=== PATIENT | female | born 1945 | race African-American/Black ===

== ENCOUNTER 2019-02-05 10:43 | Inpatient (IN) | payer OTHER ==
[2019-02-05 11:11] VITALS: BMI 52.7
--- NOTE | 2019-02-05 11:20 | PDOC ---
Attending Attestation - Resident Resident Name: ValarieSaCarlota - ED Attending Attestation I have performed the following: I have examined & evaluated the patient, The case was reviewed & discussed with the resident, I agree w/resident's findings & plan, Exceptions are as noted - HPI HPI: 02/05/19 13:19 Ms Sandra is a 73 yo F resident of [facility] presenting to the ER via EMS due to shortness of breath Pt has a h/o ESRD on HD M/W/F, atrial fibrillation on Coumadin, NIDDM, CAD, CHF , HLD, COPD, anemia, RA, and hyperparathyroidism Pt had difficulty clearly telling me what happened today Per half-way records, pt was noted to be lethargic, low grade fever (temp 99 ), and audible wheezing - Physicial Exam PE: 02/05/19 13:23 GENERAL: The patient is awake, alert, and fully oriented, morbidly obese ENT: Pupils equal, round and reactive to light, extraocular movements intact, sclera anicteric, conjunctiva clear. Neck supple. LUNGS: limited examination, distant breath sounds CV: RRR, S1/S2, no MRG. Cap refill < 2 sec. ABDOMEN: Soft, obese, non-tender EXTREMITIES: 2+ pitting LE edema bilaterally, symmetric. NEUROLOGICAL: Normal speech, normal gait. CN II-XII grossly intact. SKIN: Warm, dry, no rash - Medical Decision Making 02/05/19 13:31 DD includes but is not limited to : CHF, ACS, Pneumonia Will do: Labs CXR EKG Re Assess Arrange for HD today Laboratory Tests 02/05/19 02/05/19 12:30 12:30 WBC 12.5 H Hgb 10.6 L Hct 33.5 Plt Count 372 D VBG pH 7.34 POC VBG pCO2 50.1 POC VBG pO2 77.1 H VBG HCO3 26.0 VBG O2 Sat (Zoey) 93.8 H VBG Base Excess 0.2 02/05/19 13:32 Pt seen in the ER by Dr. Mullins Pt will be dialyzed today 02/05/19 15:49 Labs have hemolyzezd x 2 Awaiting results 02/05/19 16:14 Laboratory Tests 02/05/19 02/05/19 13:49 14:54 Sodium 135 L Potassium 4.2 Chloride 98 Carbon Dioxide 28 BUN 66.0 H Creatinine 5.6 H Random Glucose 91 Lactic Acid 0.7 Troponin I 0.[address] Elise He would like us to call the hospitalist
[2019-02-05 12:53] LABS: VENOUS PC02 50.1 mmHg (41-51); VENOUS PH 7.34 (7.31-7.41); VENOUS PO2 77.1 mmHg (30-40)
[2019-02-05 13:09] LABS: BASO % 0.2 % (0-2.0); EOS % 1.9 % (0-4.5); HEMATOCRIT 33.5 % (32.4-45.2); HEMOGLOBIN 10.6 GM/dL (10.7-15.3); LYMPH % 8.6 % (8-40); MCH 28.7 pg (25.7-33.7); MCHC 31.7 g/dl (32.0-36.0); MEAN CELL VOLUME 90.4 fl (80-96); MEAN PLT VOLUME 9.1 fl (7.5-11.1); MONO % 4.8 % (3.8-10.2); NEUT % 84.5 % (42.8-82.8); PLATELET COUNT 372 K/MM3 (134-434); RBC 3.71 M/mm3 (3.60-5.2); RDW 16.2 % (11.6-15.6); WHITE BLOOD COUNT 12.5 K/mm3 (4.0-10.0)
--- NOTE | 2019-02-05 13:10 | PDOC ---
History of Present Illness - General Chief Complaint: Shortness of Breath Stated Complaint: SOB Time Seen by Provider: 02/05/19 11:19 History Source: Patient, Retirement Records Exam Limitations: Other (poor historian) - History of Present Illness Initial Comments: 02/05/19 12:52 *pt is a poor historian* Pt is a 73yo F with PMH of ESRD on HD MWF, COPD, PE, CHF, AFib (metoprolol and Coumadin), HLD, HTN BIBA from [facility] for low grade fever, SOB and wheezing. Pt states she was feeling SOB this morning but she received treatments and felt better. She is denying symptoms at this time. Patient is a poor historian, is AOx2 but not giving a clear story. Denies chest pain, sob, abdominal pain, n/v/d , headache, fevers, chills, cough, fevers. PMD: Arik PMH: see hpi PSH: see hpi Meds: see med rec Allergies: PCN, tramadol Past History - Past Medical History Allergies/Adverse Reactions: Allergies Allergy/AdvReac Type Severity Reaction Status Date / Time Penicillins Allergy Verified 05/05/15 14:33 tramadol Allergy Verified 05/05/15 18:45 Home Medications: Ambulatory Orders Acetaminophen [Tylenol] 650 mg PO ASDIR 02/05/19 Allopurinol [Zyloprim -] 100 mg PO DAILY 02/05/19 Budesonide/Formeterol Fumarate [SYMBICORT 160/4.5mcg -] 1 inh PO BID 02/05/19 Docusate Sodium [Colace] 100 mg PO DAILY 02/05/19 Dorzolamide HCl/Timolol Maleat [Cosopt Eye Drops] 10 ml OP BID 02/05/19 Guaifenesin AC [Robitussin AC -] 5 ml PO TID 02/05/19 Hydroxychloroquine Sulfate 200 mg PO DAILY 02/05/19 Levothyroxine [Synthroid -] 125 mcg PO DAILY 02/05/19 Metoprolol Tartrate 25 mg PO BID 02/05/19 Ondansetron [Zuplenz] 4 mg PO TID 02/05/19 Pantoprazole Sodium [Protonix -] 20 mg PO DAILY 02/05/19 Polyethylene Glycol 3350 [Miralax (For Daily Use) -] 17 gm PO DAILY 02/05/19 Sennosides [Senna] 8.6 mg PO DAILY 02/05/19 Simethicone 80 mg PO TID 02/05/19 Simvastatin [Zocor -] 20 mg PO HS 02/05/19 Warfarin Sodium [Coumadin] 6 mg PO ASDIR 02/05/19 Anemia: Yes Asthma: Yes Cardiac Disorders: Yes (afib) COPD: Yes CHF: Yes Dialysis: Yes (esrf) GI Disorders: Yes (constipation) HTN: Yes Hypercholesterolemia: Yes Other medical history: RA, gout - Surgical History Appendectomy: Yes - Suicide/Smoking/Psychosocial Hx Smoking History: Smoker current status UNK Have you smoked in the past 12 months: No Information on smoking cessation initiated: No Hx Alcohol Use: No Drug/Substance Use Hx: No Review of Systems - Review of Systems Constitutional: No: Chills, Diaphoresis, Fever, Weakness HEENTM: No: Symptoms Reported Respiratory: No: Cough, Orthopnea, Shortness of Breath Cardiac (ROS): No: Chest Pain, Lightheadedness, Palpitations, Syncope ABD/GI: No: Constipated, Diarrhea, Nausea, Vomiting, Abdominal cramping : No: Symptoms Reported Musculoskeletal: No: Symptoms Reported Integumentary: No: Symptoms Reported Neurological: No: Symptoms reported *Physical Exam - Vital Signs Last Vital Signs Temp Pulse Resp BP Pulse Ox 98.5 F 73 18 166/93 100 02/05/19 11:07 02/05/19 11:07 02/05/19 11:07 02/05/19 11:07 02/05/19 11:07 - Physical Exam General Appearance: Yes: Appropriately Dressed, Obese. No: Apparent Distress HEENT: positive: EOMI, MARNIE, Normal ENT Inspection Neck: positive: Trachea midline, Supple Respiratory/Chest: positive: Decreased Breath Sounds. negative: Crackles, Rales , Wheezing Cardiovascular: positive: Regular Rhythm, Regular Rate, S1, S2. negative: Edema , JVD, Murmur Vascular Pulses: Dorsalis-Pedis (R): 1+, Doralis-Pedis (L): 1+ Gastrointestinal/Abdominal: positive: Normal Bowel Sounds, Soft. negative: Guarding, Rebound Musculoskeletal: negative: CVA Tenderness Extremity: positive: Normal Capillary Refill, Pedal Edema. negative: Calf Tenderness (up to mid calf) Integumentary: positive: Normal Color, Dry, Warm Neurologic: positive: official court reporter II-XII NML intact, Alert, Normal Mood/Affect, Normal Response, Motor Strength 5/5. negative: Fully Oriented (AOx2) ED Treatment Course - LABORATORY CBC & Chemistry Diagram: 02/05/19 12:30 02/05/19 14:54 - RADIOLOGY Radiology Studies Ordered: Category Date Time Status CHEST X-RAY PORTABLE* [RAD] Stat Radiology 02/05/19 12:16 Ordered Medical Decision Making - Medical Decision Making 02/05/19 19:17 Pt is a 73yo F with PMH of ESRD on HD MWF, COPD, PE, CHF, AFib (metoprolol and Coumadin), HLD, HTN BIBA from [facility] for low grade fever, SOB and wheezing. Pt states she was feeling SOB this morning but she received treatments and felt better. She is denying symptoms at this time. Patient is a poor historian, is AOx2 but not giving a clear story. Denies chest pain, sob, abdominal pain, n/v/d , headache, fevers, chills, cough, fevers. Vitals: wnl, 100% on NC, saturationg 96-97%RA PE: pedal edema, decreased breath sounds, no wheezing, normal heart sounds Ddx includes but not limited to fluid overload, copd exacerbation, pna, ptx, chf , pe, acs, infectious process pt due for dialysis today, could be fluid overload, however given low grade temp and sob, will run sepsis labs, will refrain from giving fluids at this time. labs significant for Cr 5 (above baseline of around 3-4) CXR shows vascular congestion. Pt endorsed to Dr. Mullins who will take pt to dialysis. chemistires hemolyzed x2. pt endorsed to Dr. Elise then endorsed to hospitalist team to admit for fluid overload, kylah *DC/Admit/Observation/Transfer Diagnosis at time of Disposition: End stage renal disease Renal failure (ARF), acute on chronic Qualifiers: Acute renal failure type: unspecified Chronic kidney disease stage: on chronic dialysis Qualified Code(s): N17.9 - Acute kidney failure, unspecified; N18.9 - Chronic kidney disease, unspecified; Z99.2 - Dependence on renal dialysis - Discharge Dispostion Condition at time of disposition: Good - Referrals - Patient Instructions - Post Discharge Activity
[2019-02-05 14:38] LABS: INR 1.9 (0.83-1.09); PROTHROMBIN TIME (PATIENT) 22.6 SEC (9.7-13.0)
--- NOTE | 2019-02-05 14:56 | CONSULT ---
Consult Consult Specialty:: Nephrology Reason for Consultation:: ESRD - History of Present Illness Chief Complaint: shortness of breath History of Present Illness: Pt is a 73 year old female with pmhx of esrd, a-fib, dm, cad, chf, hld and copd who presents from the [place] with increased shortness of breath. She has ESRD and is on a MWF schedule. She says that she feels that she needs HD. SHe denies chest pain or palpitations. SHe denies fevers or chills. She denies cough. She was also found to be lethargic in rehab however her mental status has improved. - History Source History Provided By: Patient, Medical Record - Past Medical History Cardio/Vascular: Yes: CAD, CHF, Hyperlipdemia Pulmonary: Yes: COPD, Pneumonia Renal/: Yes: Renal Inusuff (Has CKD, followed by Dr. 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 [employer] History of Recent Travel: No Home Medications - Allergies Allergies/Adverse Reactions: Allergies Allergy/AdvReac Type Severity Reaction Status Date / Time Penicillins Allergy Verified 05/05/15 14:33 tramadol Allergy Verified 05/05/15 18:45 - Home Medications Home Medications: Ambulatory Orders Acetaminophen [Tylenol] 650 mg PO ASDIR 02/05/19 Allopurinol [Zyloprim -] 100 mg PO DAILY 02/05/19 Budesonide/Formeterol Fumarate [SYMBICORT 160/4.5mcg -] 1 inh PO BID 02/05/19 Docusate Sodium [Colace] 100 mg PO DAILY 02/05/19 Dorzolamide HCl/Timolol Maleat [Cosopt Eye Drops] 10 ml OP BID 02/05/19 Guaifenesin AC [Robitussin AC -] 5 ml PO TID 02/05/19 Hydroxychloroquine Sulfate 200 mg PO DAILY 02/05/19 Levothyroxine [Synthroid -] 125 mcg PO DAILY 02/05/19 Metoprolol Tartrate 25 mg PO BID 02/05/19 Ondansetron [Zuplenz] 4 mg PO TID 02/05/19 Pantoprazole Sodium [Protonix -] 20 mg PO DAILY 02/05/19 Polyethylene Glycol 3350 [Miralax (For Daily Use) -] 17 gm PO DAILY 02/05/19 Sennosides [Senna] 8.6 mg PO DAILY 02/05/19 Simethicone 80 mg PO TID 02/05/19 Simvastatin [Zocor -] 20 mg PO HS 02/05/19 Warfarin Sodium [Coumadin] 6 mg PO ASDIR 02/05/19 Family Disease History - Family Disease History Family Disease History: Heart Disease: Father (55 HTN , ), Other: Mother (80, FIBROMYALGIA, DM), Brother (A&W), Sister (") Review of Systems - Review of Systems Constitutional: reports: Malaise Eyes: reports: No Symptoms HENT: reports: No Symptoms Neck: reports: No Symptoms Cardiovascular: reports: Edema, Shortness of Breath Respiratory: reports: SOB, SOB on Exertion. denies: Cough Genitourinary: reports: No Symptoms Musculoskeletal: reports: No Symptoms Integumentary: reports: No Symptoms Neurological: reports: No Symptoms Endocrine: reports: No Symptoms Hematology/Lymphatic: reports: No Symptoms Psychiatric: reports: No Symptoms Physical Exam Vital Signs: Vital Signs Temperature 98.5 F 02/05/19 11:07 Pulse Rate 73 02/05/19 11:07 Respiratory Rate 18 02/05/19 11:07 Blood Pressure 166/93 02/05/19 11:07 O2 Sat by Pulse Oximetry (%) 100 02/05/19 11:07 Constitutional: Yes: Calm Eyes: Yes: Conjunctiva Clear HENT: Yes: Atraumatic Cardiovascular: Yes: S1, S2 Respiratory: Yes: On Nasal O2 Gastrointestinal: Yes: Soft, Abdomen, Obese Musculoskeletal: Yes: WNL Extremities: Yes: Other (fistula with thrill and bruit) Edema: Yes Neurological: Yes: Oriented Psychiatric: Yes: Oriented Labs: CBC, BMP 02/05/19 12:30 Laboratory Tests 02/05/19 02/05/19 12:30 13:49 WBC 12.5 H Hgb 10.6 L Sodium Pending Potassium Pending Chloride Pending Carbon Dioxide Pending Anion Gap Pending BUN Pending Creatinine Pending Est GFR (CKD-EPI)AfAm Pending Est GFR (CKD-EPI)NonAf Pending Random Glucose Pending Imaging - Results Chest X-ray: Report Reviewed Problem List - Problems (1) CHF (congestive heart failure) Code(s): I50.9 - HEART FAILURE, UNSPECIFIED (2) End stage renal disease Code(s): N18.6 - END STAGE RENAL DISEASE (3) Hypertension Code(s): I10 - ESSENTIAL (PRIMARY) HYPERTENSION Assessment/Plan Impression 1. ESRD 2. Gout 3. a-fib 4. DM 5. CHF 6. hyperlipidemia 7. anemia Plan - will arrange for HD today - follow up bmp - cxr reviewed - renal diet - called HD center - HD 3:45 2 k bath, 1999 heparin, aranesp 40, venofer 50, right arm avf - follow cultures
[2019-02-05] MEDS ORDERED: HEPARIN NA (PORCINE) 5,000 UNITS/ML 1ML VIAL IVPUSH ONE (14:58)
[2019-02-05 16:05] LABS: ALBUMIN 3.1 g/dl (3.4-5.0); BILIRUBIN,TOTAL 0.3 mg/dL (0.2-1); CALCIUM 7.9 mg/dL (8.5-10.1); CREATININE 5.6 mg/dL (0.55-1.3); MAGNESIUM 2.3 mg/dL (1.8-2.4); POTASSIUM 4.2 mmol/L (3.5-5.1); TOT PROT 7.2 g/dl (6.4-8.2)
--- NOTE | 2019-02-05 16:44 | EKG ---
Test Reason : Blood Pressure : / mmHG Vent. Rate : 072 BPM Atrial Rate : 072 BPM P-R Int : 160 ms QRS Dur : 088 ms QT Int : 434 ms P-R-T Axes : 018 -27 000 degrees QTc Int : 475 ms NORMAL SINUS RHYTHM SEPTAL INFARCT , AGE UNDETERMINED ABNORMAL ECG WHEN COMPARED WITH ECG OF 05-MAY-2015 14:36, T WAVE VARIATION Confirmed by RONAN CHACON MD ([id number]) on 02/05/2019 4:43:46 PM Referred By: Confirmed By:RONAN CHACON MD
[2019-02-05] MEDS ORDERED: SODIUM CHLORIDE 250 ML IV PRN (17:41)
[2019-02-05] MEDS ORDERED: EPOETIN ALFA 2,000 UNIT/1 ML VIAL IVPUSH ONE (17:45)
--- NOTE | 2019-02-05 18:03 | HP ---
Admitting History and Physical - Admission Chief Complaint: "I missed my dialysis today" History of Present Illness: 73 y/o female resident of [facility] presenting to the ER via EMS due to shortness of breath Pt has a h/o ESRD on HD M/W/F, atrial fibrillation on Coumadin, NIDDM, CAD, CHF , HLD, COPD, anemia, RA, and hyperparathyroidism Pt yari poor historian and had difficulty clearly telling me what happened today leading up to her admission.Per residential records, pt was noted to be lethargic, low grade fever (temp 99), and audible wheezing History Source: Patient, Medical Record, Transfer Record Limitations to Obtaining History: Poor Historian - Past Medical History Cardiovascular: Yes: AFIB (on coumadin), CAD, CHF, Hyperlipdemia Pulmonary: Yes: COPD, Pneumonia Renal/: Yes: Renal Inusuff (Has CKD, followed by Dr. Lloyd, baseline creatinine approx 2.5 -> 3 mg/dL; had renal biopsy 06/2013 which revealed diabetic nephropathy), Hemodialysis (M/W/F- last HD on 02/02) Heme/Onc: Yes: Anemia Rheumatology: Yes: Rheumatoid Arthritis Endocrine: Yes: Diabetes Mellitus, Hyperparathyroidism Dermatology: Yes: Other (SKIN RASH IN SKIN FOLDS) - Past Surgical History Past Surgical History: Yes: AV Fistula/Graft - Smoking History Smoking history: Smoker current status UNK Have you smoked in the past 12 months: No - Alcohol/Substance Use Hx Alcohol Use: No - Social History ADL: Support Services (resident [facility]) 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 [employer] History of Recent Travel: No Home Medications - Allergies Allergies/Adverse Reactions: Allergies Allergy/AdvReac Type Severity Reaction Status Date / Time Penicillins Allergy Verified 05/05/15 14:33 tramadol Allergy Verified 05/05/15 18:45 - Home Medications Home Medications: Ambulatory Orders Acetaminophen [Tylenol] 650 mg PO ASDIR 02/05/19 Allopurinol [Zyloprim -] 100 mg PO DAILY 02/05/19 Budesonide/Formeterol Fumarate [SYMBICORT 160/4.5mcg -] 1 inh PO BID 02/05/19 Docusate Sodium [Colace] 100 mg PO DAILY 02/05/19 Dorzolamide HCl/Timolol Maleat [Cosopt Eye Drops] 10 ml OP BID 02/05/19 Guaifenesin AC [Robitussin AC -] 5 ml PO TID 02/05/19 Levothyroxine [Synthroid -] 125 mcg PO DAILY 02/05/19 Ondansetron [Zuplenz] 4 mg PO TID 02/05/19 Pantoprazole Sodium [Protonix -] 20 mg PO DAILY 02/05/19 Polyethylene Glycol 3350 [Miralax (For Daily Use) -] 17 gm PO DAILY 02/05/19 RX: Hydroxychloroquine Sulfate 200 mg PO DAILY 02/05/19 RX: Metoprolol Tartrate 25 mg PO BID 02/05/19 RX: Simethicone 80 mg PO TID 02/05/19 Sennosides [Senna] 8.6 mg PO DAILY 02/05/19 Simvastatin [Zocor -] 20 mg PO HS 02/05/19 Warfarin Sodium [Coumadin] 6 mg PO ASDIR 02/05/19 Family Disease History - Family Disease History Family Disease History: Heart Disease: Father (55 HTN , ), Other: Mother (80, FIBROMYALGIA, DM), Brother (A&W), Sister (") Review of Systems - Review of Systems Constitutional: reports: Fever, Weakness Eyes: reports: No Symptoms HENT: reports: No Symptoms Neck: reports: No Symptoms Cardiovascular: reports: Shortness of Breath Respiratory: reports: SOB on Exertion (has not be able to ambulate freely-needs to use w/c), Wheezing Gastrointestinal: reports: No Symptoms Genitourinary: reports: No Symptoms Breasts: reports: No Symptoms Reported Musculoskeletal: reports: No Symptoms Integumentary: reports: No Symptoms Neurological: reports: Confusion (as report byresidence) Endocrine: reports: No Symptoms Hematology/Lymphatic: reports: No Symptoms Psychiatric: reports: No Symptoms Physical Examination Vital Signs: Vital Signs Temperature 98.5 F 02/05/19 11:07 Pulse Rate 73 02/05/19 11:07 Respiratory Rate 18 02/05/19 11:07 Blood Pressure 166/93 02/05/19 11:07 O2 Sat by Pulse Oximetry (%) 100 02/05/19 11:07 Constitutional: Yes: No Distress, Calm, Obese Eyes: Yes: WNL, Conjunctiva Clear, EOM Intact HENT: Yes: WNL, Atraumatic, Normocephalic Neck: Yes: WNL, Supple, Trachea Midline Cardiovascular: Yes: Regular Rate and Rhythm Respiratory: Yes: Regular, Diminished (at bases), Poor Air Entry, Wheezes ( reported but not on exam now) Gastrointestinal: Yes: Normal Bowel Sounds, Soft ...Rectal Exam: Yes: Deferred Renal/: Yes: Other (pt states she make some urine at home) Musculoskeletal: Yes: Muscle Weakness Edema: Yes Edema: LLE: 3+, RLE: 3+ Peripheral Pulses WNL: No Peripheral Pulses: Left Radial: 4+, Right Radial: 4+, Left Doralis Pedis: 3+, Right Dorsalis Pedis: 3+, Left Femoral: 4+, Right Femoral: 4+ Integumentary: Yes: Rash (fungal rash under panus) Neurological: Yes: Alert, Confusion, Unsteady Gait (as reported by patient bur not observed) ...Motor Strength: LUE, LLE, RUE, RLE (generalized weakness) Psychiatric: Yes: Alert, Oriented (to person and place(knew she was at [facility])) Labs: CBC, BMP 02/05/19 12:30 02/05/19 14:54 Imaging - Results Chest X-ray: Image Reviewed (poor inspiratory effort, inceased PNC since last CXR) Problem List - Problems (1) Atrial fibrillation Assessment/Plan: rate controlled on metolrolol continue home dose of 25mg BID antiocoagulated with coumdain continue home dose (6mg) tonight and reassess after INR in am daily INR Code(s): I48.91 - UNSPECIFIED ATRIAL FIBRILLATION (2) Prophylactic measure Assessment/Plan: FEN no need for further IVF resume diabetic/renal diet after HD monitor electrolytes DVT Proph heparin SQ while in patient resume coumadin for AF proph Dispo maintain as in patient full code discharge planning Code(s): Z29.9 - ENCOUNTER FOR PROPHYLACTIC MEASURES, UNSPECIFIED (3) CHF (congestive heart failure) Assessment/Plan: Increased PVC on CXR no need for additional IVF will reassess pulmonary status after HD is complete Lasix PRN after HD BNP pending and will trend if elevate repeat CXR in morning Code(s): I50.9 - HEART FAILURE, UNSPECIFIED (4) Diabetes Assessment/Plan: BG 91 in ED BGN ac abd q HS novolog sliding scale Code(s): E11.9 - TYPE 2 DIABETES MELLITUS WITHOUT COMPLICATIONS (5) End stage renal disease Assessment/Plan: Followed Dr. Lloyd, baseline creatinine approx 2.5 -> 3 mg/dL; had renal biopsy 06/2013 which revealed diabetic nephropathy) seen by Dr Hector in Ed and pt will have HD today will assess for additional need to HD tomorrow and after labs are reviewed Code(s): N18.6 - END STAGE RENAL DISEASE (6) Hyperparathyroidism Code(s): E21.3 - HYPERPARATHYROIDISM, UNSPECIFIED (7) Obesity Assessment/Plan: nutritional counseling Code(s): E66.9 - OBESITY, UNSPECIFIED (8) Rheumatoid arthritis Assessment/Plan: continue home dose of hrdroxychloroquine sulfate Code(s): M06.9 - RHEUMATOID ARTHRITIS, UNSPECIFIED (9) Hypothyroid Assessment/Plan: continue home dose of synthroid TSH level in am Code(s): E03.9 - HYPOTHYROIDISM, UNSPECIFIED Visit type - Emergency Visit Emergency Visit: Yes ED Registration Date: 02/05/19 Care time: The patient presented to the Emergency Department on the above date and was hospitalized for further evaluation of their emergent condition. - New Patient This patient is new to me today: Yes Date on this admission: 02/05/19 - Critical Care Critical Care patient: No
[2019-02-05] MEDS ORDERED: guaiFENesin/CODEINE 5 ML UNIT-DOSE CUPS PO PRN (18:41)
[2019-02-05] MEDS ORDERED: ACETAMINOPHEN 325 MG TABLET (FP) PO PRN (18:45)
[2019-02-05] MEDS ORDERED: ALBUTEROL SO4 2.5/IPRATROPIUM 0.5 INH SOL 3 ML VIAL.NEB. NEB PRN (18:45)
[2019-02-05] MEDS ORDERED: WARFARIN NA 3 MG TABLET PO SCH (20:00)
[2019-02-05] MEDS ORDERED: PATIENT'S OWN MEDICATION (NON-FORMULARY) (Dorzolamide Hcl/Timolol Maleat [Cosopt Eye Drops OP SCH (22:00)
[2019-02-05] MEDS: METOPROLOL TARTRATE 25 MG TABLET (FP) PO SCH (23:15)
[2019-02-05] MEDS: ATORVASTATIN CA 10 MG TABLET (FP) PO SCH (23:15)
[2019-02-05] MEDS: BUDESONIDE/FORMETEROL FUMARATE 160/4.5 mcg INHALER IH SCH (23:15)
[2019-02-06] MEDS ORDERED: WARFARIN NA 1 MG TABLET (FP) ONE (01:12)
[2019-02-06] MEDS ORDERED: METOPROLOL TARTRATE 25 MG TABLET (FP) ONE (01:13)
[2019-02-06] MEDS ORDERED: WARFARIN NA 5 MG TABLET (UD) ONE (01:13)
[2019-02-06] MEDS ORDERED: ATORVASTATIN CA 10 MG TABLET (FP) ONE (01:13)
[2019-02-06] MEDS: SIMETHICONE 80 MG TAB.CHEW (FP) PO SCH ×3 (05:53→21:55)
[2019-02-06 07:30] LABS: BASO % 0.7 % (0-2.0); HEMATOCRIT 33.8 % (32.4-45.2); HEMOGLOBIN 10.7 GM/dL (10.7-15.3); LYMPH % 15.4 % (8-40); MCH 28.8 pg (25.7-33.7); MCHC 31.6 g/dl (32.0-36.0); MEAN PLT VOLUME 8.1 fl (7.5-11.1); MONO % 7.8 % (3.8-10.2); NEUT % 75.1 % (42.8-82.8); PLATELET COUNT 221 K/MM3 (134-434); RBC 3.72 M/mm3 (3.60-5.2); RDW 16.4 % (11.6-15.6); WHITE BLOOD COUNT 12.1 K/mm3 (4.0-10.0)
[2019-02-06 07:46] LABS: INR 2.23 (0.83-1.09); PROTHROMBIN TIME (PATIENT) 26.5 SEC (9.7-13.0)
[2019-02-06 07:59] LABS: ALBUMIN 3.3 g/dl (3.4-5.0); BILIRUBIN,TOTAL 0.3 mg/dL (0.2-1); BLOOD UREA NITROGEN 35.2 mg/dL (7-18); CALCIUM 8.3 mg/dL (8.5-10.1); CREATININE 4.1 mg/dL (0.55-1.3); MAGNESIUM 2.2 mg/dL (1.8-2.4); N-TERMINAL BNP 25103.2 pg/ml (5-125); POTASSIUM 3.9 mmol/L (3.5-5.1); TOT PROT 7.6 g/dl (6.4-8.2)
[2019-02-06] MEDS ORDERED: PT OWN MED DRAWER 7, Y5N ONE (10:33)
[2019-02-06] MEDS: METOPROLOL TARTRATE 25 MG TABLET (FP) PO SCH ×2 (10:49→21:57)
[2019-02-06] MEDS: SENNOSIDES 8.6MG TABLET (FP) PO SCH (10:49)
[2019-02-06] MEDS: BUDESONIDE/FORMETEROL FUMARATE 160/4.5 mcg INHALER IH SCH ×2 (10:49→21:56)
[2019-02-06] MEDS: ALLOPURINOL 100 MG TABLET (FP) PO SCH (10:49)
[2019-02-06] MEDS: LEVOTHYROXINE NA 125 MCG TABLET (FP) PO SCH (10:49)
[2019-02-06] MEDS: PANTOPRAZOLE 20 MG TABLET (FP) PO SCH (10:49)
[2019-02-06] MEDS: DOCUSATE SODIUM 100 MG CAPSULE (FP) PO SCH (10:49)
[2019-02-06] MEDS: POLYETHYLENE GLYCOL 3350 119 GM BTL PO SCH (10:50)
[2019-02-06] MEDS: HYDROXYCHLOROQUINE SO4 200 MG TABLET (FP) PO SCH (12:16)
--- NOTE | 2019-02-06 13:03 | PN ---
Progress Note (short form) - Note Progress Note: has burning when she urinates coughing, but better per pt no SOB was dialysed yesterday Vital Signs - 24 hr 02/05/19 02/05/19 02/05/19 17:00 17:20 17:50 Temperature Pulse Rate 69 66 85 Pulse Rate [ Left] Respiratory 18 18 18 Rate Blood Pressure 210/82 H 184/105 H 174/86 H Blood Pressure [Left] O2 Sat by Pulse Oximetry (%) 02/05/19 02/05/19 02/05/19 18:20 18:50 19:20 Temperature Pulse Rate 87 99 H 65 Pulse Rate [ Left] Respiratory 18 18 18 Rate Blood Pressure 130/71 103/65 134/109 H Blood Pressure [Left] O2 Sat by Pulse Oximetry (%) 02/05/19 02/05/19 02/05/19 19:50 20:20 20:50 Temperature Pulse Rate 65 108 H 109 H Pulse Rate [ Left] Respiratory 18 18 18 Rate Blood Pressure 145/84 132/87 128/81 Blood Pressure [Left] O2 Sat by Pulse Oximetry (%) 02/05/19 02/05/19 02/05/19 21:05 21:20 22:45 Temperature Pulse Rate 69 66 Pulse Rate [ Left] Respiratory 18 18 Rate Blood Pressure 133/80 156/84 Blood Pressure [Left] O2 Sat by Pulse 98 Oximetry (%) 02/06/19 02/06/19 02/06/19 00:31 01:41 04:44 Temperature 98.0 F 98.5 F Pulse Rate 62 Pulse Rate [ 69 66 Left] Respiratory 23 H 24 H 20 Rate Blood Pressure Blood Pressure 158/90 [Left] O2 Sat by Pulse 100 100 97 Oximetry (%) 02/06/19 02/06/19 02/06/19 05:53 05:56 09:00 Temperature 98.6 F 98.5 F Pulse Rate 62 61 Pulse Rate [ Left] Respiratory 20 20 94 H Rate Blood Pressure 136/84 152/71 Blood Pressure [Left] O2 Sat by Pulse 96 94 L Oximetry (%) Current Medications Generic Name Dose Route Start Last Admin Trade Name Freq PRN Reason Stop Dose Admin Acetaminophen 650 mg 02/05/19 18:45 Tylenol - PO Q6H PRN Fever Or Pain Albuterol/Ipratropium 1 amp 02/05/19 18:45 Duoneb - NEB Q4H PRN SHORTNESS OF BREATH Allopurinol 100 mg 02/06/19 10:00 02/06/19 10:49 Zyloprim - PO 100 mg DAILY [facility] Administration Atorvastatin Calcium 10 mg 02/05/19 22:00 02/05/19 23:15 Lipitor - PO 10 mg HS [facility] Administration Budesonide/Formoterol Fumarate 1 puff 02/05/19 22:00 02/06/19 10:49 Symbicort 160/4.5mcg - IH 1 puff BID [facility] Administration Docusate Sodium 100 mg 02/06/19 10:00 02/06/19 10:49 Colace - PO 100 mg DAILY [facility] Administration Guaifenesin/Codeine Phosphate 5 ml 02/05/19 18:41 Robitussin Ac - PO TID PRN COUGH Hydroxychloroquine Sulfate 200 mg 02/06/19 10:00 02/06/19 12:16 Plaquenil - PO 200 mg DAILY [facility] Administration Sodium Chloride 250 mls @ 3,000 mls/hr 02/05/19 17:41 Normal Saline - IV 02/06/19 17:40 PRN PRN Hypotension during Dialysis Levothyroxine Sodium 125 mcg 02/06/19 10:00 02/06/19 10:49 Synthroid - PO 125 mcg DAILY [facility] Administration Metoprolol Tartrate 25 mg 02/05/19 22:00 02/06/19 10:49 Lopressor - PO 25 mg BID [facility] Administration Non-Formulary Medication 10 ml 02/05/19 22:00 Dorzolamide Hcl/Timolol Maleat [Cosopt Eye Drops] OP BID [facility] Pantoprazole Sodium 20 mg 02/06/19 10:00 02/06/19 10:49 Protonix - PO 20 mg DAILY [facility] Administration Polyethylene Glycol 17 gm 02/06/19 10:00 02/06/19 10:50 Miralax (For Daily Use) - PO 17 gm DAILY [facility] Administration Senna 1 tab 02/06/19 10:00 02/06/19 10:49 Senna - PO 1 tab DAILY [facility] Administration Simethicone 80 mg 02/05/19 22:00 02/06/19 05:53 Mylicon - PO 80 mg TID [facility] Administration Laboratory Results - last 24 hr 02/05/19 02/05/19 02/05/19 12:30 12:30 12:30 WBC 12.5 H RBC 3.71 Hgb 10.6 L Hct 33.5 MCV 90.4 MCH 28.7 MCHC 31.7 L RDW 16.2 H Plt Count 372 D MPV 9.1 D Absolute Neuts (auto) 10.6 H Neutrophils % 84.5 H Lymphocytes % 8.6 D Monocytes % 4.8 Eosinophils % 1.9 Basophils % 0.2 Nucleated RBC % 0 PT with INR Cancelled INR Cancelled PTT (Actin FS) Cancelled VBG pH 7.34 POC VBG pCO2 50.1 POC VBG pO2 77.1 H VBG HCO3 26.0 VBG O2 Sat (Zoey) 93.8 H VBG Base Excess 0.2 Sodium Potassium Chloride Carbon Dioxide Anion Gap BUN Creatinine Est GFR (CKD-EPI)AfAm Est GFR (CKD-EPI)NonAf POC Glucometer Random Glucose Lactic Acid Calcium Magnesium Total Bilirubin AST ALT Alkaline Phosphatase Troponin I B-Natriuretic Peptide Total Protein Albumin TSH 02/05/19 02/05/19 02/05/19 12:30 12:30 13:49 WBC RBC Hgb Hct MCV MCH MCHC RDW Plt Count MPV Absolute Neuts (auto) Neutrophils % Lymphocytes % Monocytes % Eosinophils % Basophils % Nucleated RBC % PT with INR 22.60 H INR 1.90 H PTT (Actin FS) VBG pH POC VBG pCO2 POC VBG pO2 VBG HCO3 VBG O2 Sat (Zoey) VBG Base Excess Sodium Cancelled Potassium Cancelled Chloride Cancelled Carbon Dioxide Cancelled Anion Gap Cancelled BUN Cancelled Creatinine Cancelled Est GFR (CKD-EPI)AfAm Cancelled Est GFR (CKD-EPI)NonAf Cancelled POC Glucometer Random Glucose Cancelled Lactic Acid Cancelled Calcium Cancelled Magnesium Total Bilirubin Cancelled AST Cancelled ALT Cancelled Alkaline Phosphatase Cancelled Troponin I Cancelled B-Natriuretic Peptide Total Protein Cancelled Albumin Cancelled TSH 02/05/19 02/05/19 02/05/19 13:49 13:49 14:54 WBC RBC Hgb Hct MCV MCH MCHC RDW Plt Count MPV Absolute Neuts (auto) Neutrophils % Lymphocytes % Monocytes % Eosinophils % Basophils % Nucleated RBC % PT with INR INR PTT (Actin FS) VBG pH POC VBG pCO2 POC VBG pO2 VBG HCO3 VBG O2 Sat (Zoey) VBG Base Excess Sodium Cancelled 135 L Potassium Cancelled 4.2 Chloride Cancelled 98 Carbon Dioxide Cancelled 28 Anion Gap Cancelled 9 BUN Cancelled 66.0 H Creatinine Cancelled 5.6 H Est GFR (CKD-EPI)AfAm Cancelled 8.12 Est GFR (CKD-EPI)NonAf Cancelled 7.01 POC Glucometer Random Glucose Cancelled 91 Lactic Acid 0.7 Calcium Cancelled 7.9 L Magnesium 2.3 Total Bilirubin Cancelled 0.3 AST Cancelled 10 L ALT Cancelled 9 L Alkaline Phosphatase Cancelled 149 H Troponin I Cancelled 0.03 B-Natriuretic Peptide Total Protein Cancelled 7.2 Albumin Cancelled 3.1 L TSH 02/06/19 02/06/19 02/06/19 05:51 06:05 06:05 WBC 12.1 H RBC 3.72 Hgb 10.7 Hct 33.8 MCV 91.0 MCH 28.8 MCHC 31.6 L RDW 16.4 H Plt Count MPV Absolute Neuts (auto) 9.1 H Neutrophils % 75.1 Lymphocytes % 15.4 D Monocytes % 7.8 Eosinophils % 1.0 Basophils % 0.7 D Nucleated RBC % 0 PT with INR 26.50 H INR 2.23 H PTT (Actin FS) VBG pH POC VBG pCO2 POC VBG pO2 VBG HCO3 VBG O2 Sat (Zoey) VBG Base Excess Sodium Potassium Chloride Carbon Dioxide Anion Gap BUN Creatinine Est GFR (CKD-EPI)AfAm Est GFR (CKD-EPI)NonAf POC Glucometer 91 Random Glucose Lactic Acid Calcium Magnesium Total Bilirubin AST ALT Alkaline Phosphatase Troponin I B-Natriuretic Peptide Total Protein Albumin TSH 02/06/19 02/06/19 06:05 10:56 WBC RBC Hgb Hct MCV MCH MCHC RDW Plt Count MPV Absolute Neuts (auto) Neutrophils % Lymphocytes % Monocytes % Eosinophils % Basophils % Nucleated RBC % PT with INR INR PTT (Actin FS) VBG pH POC VBG pCO2 POC VBG pO2 VBG HCO3 VBG O2 Sat (Zoey) VBG Base Excess Sodium 137 Potassium 3.9 Chloride 98 Carbon Dioxide 31 Anion Gap 8 BUN 35.2 H Creatinine 4.1 H Est GFR (CKD-EPI)AfAm 11.84 Est GFR (CKD-EPI)NonAf 10.21 POC Glucometer 85 Random Glucose 81 Lactic Acid Calcium 8.3 L Magnesium 2.2 Total Bilirubin 0.3 AST 13 L ALT 9 L Alkaline Phosphatase 148 H Troponin I B-Natriuretic Peptide 12023.2 H Total Protein 7.6 Albumin 3.3 L TSH 1.07 S1 S2 irregular Lungs decreased Ronchi scattered Abd- soft, obese, NT trace edema+ PLAn may straight cath for urine start ceftriaxone for possible UTI blood cultures negative so far HD per renal nebs as needed Problem List - Problems (1) UTI (urinary tract infection) Code(s): N39.0 - URINARY TRACT INFECTION, SITE NOT SPECIFIED (2) Atrial fibrillation Code(s): I48.91 - UNSPECIFIED ATRIAL FIBRILLATION (3) End stage renal disease Code(s): N18.6 - END STAGE RENAL DISEASE (4) Hypothyroid Code(s): E03.9 - HYPOTHYROIDISM, UNSPECIFIED (5) Anemia Code(s): D64.9 - ANEMIA, UNSPECIFIED
[2019-02-06 13:26] LABS: PLATELET ESTIMATE NORMAL
[2019-02-06] MEDS: amLODIPine BESYLATE 5 MG TABLET (FP) PO SCH (13:33)
[2019-02-06] MEDS ORDERED: SODIUM CHLORIDE 250 ML IV PRN (13:39)
--- NOTE | 2019-02-06 13:39 | PN ---
Progress Note, Physician History of Present Illness: Pt seen and examined at bedside. She is awake and alert. She denies shortness of breath. - Current Medication List Current Medications: Active Medications Acetaminophen (Tylenol -) 650 mg PO Q6H PRN PRN Reason: Fever Or Pain Albuterol/Ipratropium (Duoneb -) 1 amp NEB Q4H PRN PRN Reason: SHORTNESS OF BREATH Allopurinol (Zyloprim -) 100 mg PO DAILY [facility] Last Admin: 02/06/19 10:49 Dose: 100 mg Amlodipine Besylate (Norvasc -) 5 mg PO DAILY [facility] Atorvastatin Calcium (Lipitor -) 10 mg PO HS [facility] Last Admin: 02/05/19 23:15 Dose: 10 mg Budesonide/Formoterol Fumarate (Symbicort 160/4.5mcg -) 1 puff IH BID [facility] Last Admin: 02/06/19 10:49 Dose: 1 puff Docusate Sodium (Colace -) 100 mg PO DAILY [facility] Last Admin: 02/06/19 10:49 Dose: 100 mg Guaifenesin/Codeine Phosphate (Robitussin Ac -) 5 ml PO TID PRN PRN Reason: COUGH Hydroxychloroquine Sulfate (Plaquenil -) 200 mg PO DAILY [facility] Last Admin: 02/06/19 12:16 Dose: 200 mg Sodium Chloride (Normal Saline -) 250 mls @ 3,000 mls/hr IV PRN PRN PRN Reason: Hypotension during Dialysis Stop: 02/06/19 17:40 Levofloxacin (Levaquin 250 Mg Premixed Ivpb -) 250 mg in 50 mls @ 50 mls/hr IVPB Q2D@1000 [facility]; Protocol Levofloxacin (Levaquin 250 Mg Premixed Ivpb -) 250 mg in 50 mls @ 50 mls/hr IVPB ONCE ONE; Protocol Stop: 02/06/19 14:14 Levothyroxine Sodium (Synthroid -) 125 mcg PO DAILY [facility] Last Admin: 02/06/19 10:49 Dose: 125 mcg Metoprolol Tartrate (Lopressor -) 25 mg PO BID [facility] Last Admin: 02/06/19 10:49 Dose: 25 mg Non-Formulary Medication (Dorzolamide Hcl/Timolol Maleat [Cosopt Eye Drops]) 10 ml OP BID [facility] Pantoprazole Sodium (Protonix -) 20 mg PO DAILY [facility] Last Admin: 02/06/19 10:49 Dose: 20 mg Polyethylene Glycol (Miralax (For Daily Use) -) 17 gm PO DAILY [facility] Last Admin: 02/06/19 10:50 Dose: 17 gm Senna (Senna -) 1 tab PO DAILY [facility] Last Admin: 02/06/19 10:49 Dose: 1 tab Simethicone (Mylicon -) 80 mg PO TID [facility] Last Admin: 02/06/19 05:53 Dose: 80 mg Warfarin Sodium (Coumadin -) 6 mg PO DAILY@1800 [facility] - Objective Vital Signs: Vital Signs Temperature 98.5 F 02/06/19 09:00 Pulse Rate 61 02/06/19 09:00 Respiratory Rate 94 H 02/06/19 09:00 Blood Pressure 152/71 02/06/19 09:00 O2 Sat by Pulse Oximetry (%) 94 L 02/06/19 09:00 Constitutional: Yes: Calm Eyes: Yes: Conjunctiva Clear HENT: Yes: Atraumatic Neck: Yes: Supple Cardiovascular: Yes: S1, S2 Respiratory: Yes: CTA Bilaterally, On Nasal O2 Gastrointestinal: Yes: Normal Bowel Sounds, Soft, Abdomen, Obese Genitourinary: Yes: WNL Musculoskeletal: Yes: WNL Edema: Yes Edema: LLE: 1+, RLE: 1+ Neurological: Yes: Oriented Psychiatric: Yes: Oriented Labs: CBC, BMP 02/06/19 06:05 02/06/19 06:05 INR, PTT INR 2.23 (0.83-1.09) H 02/06/19 06:05 Problem List - Problems (1) CHF (congestive heart failure) Code(s): I50.9 - HEART FAILURE, UNSPECIFIED (2) End stage renal disease Code(s): N18.6 - END STAGE RENAL DISEASE (3) Hypertension Code(s): I10 - ESSENTIAL (PRIMARY) HYPERTENSION Assessment/Plan Current Medications Generic Name Dose Route Start Last Admin Trade Name Freq PRN Reason Stop Dose Admin Acetaminophen 650 mg 02/05/19 18:45 Tylenol - PO Q6H PRN Fever Or Pain Albuterol/Ipratropium 1 amp 02/05/19 18:45 Duoneb - NEB Q4H PRN SHORTNESS OF BREATH Allopurinol 100 mg 02/06/19 10:00 02/06/19 10:49 Zyloprim - PO 100 mg DAILY [facility] Administration Amlodipine Besylate 5 mg 02/06/19 13:15 Norvasc - PO DAILY [facility] Atorvastatin Calcium 10 mg 02/05/19 22:00 02/05/19 23:15 Lipitor - PO 10 mg HS [facility] Administration Budesonide/Formoterol Fumarate 1 puff 02/05/19 22:00 02/06/19 10:49 Symbicort 160/4.5mcg - IH 1 puff BID [facility] Administration Docusate Sodium 100 mg 02/06/19 10:00 02/06/19 10:49 Colace - PO 100 mg DAILY [facility] Administration Guaifenesin/Codeine Phosphate 5 ml 02/05/19 18:41 Robitussin Ac - PO TID PRN COUGH Hydroxychloroquine Sulfate 200 mg 02/06/19 10:00 02/06/19 12:16 Plaquenil - PO 200 mg DAILY [facility] Administration Sodium Chloride 250 mls @ 3,000 mls/hr 02/05/19 17:41 Normal Saline - IV 02/06/19 17:40 PRN PRN Hypotension during Dialysis Levofloxacin 250 mg in 50 mls @ 50 mls/hr 02/08/19 10:00 Levaquin 250 Mg Premixed Ivpb - IVPB Q2D@1000 [facility] Protocol Levofloxacin 250 mg in 50 mls @ 50 mls/hr 02/06/19 13:15 Levaquin 250 Mg Premixed Ivpb - IVPB 02/06/19 14:14 ONCE ONE Protocol Levothyroxine Sodium 125 mcg 02/06/19 10:00 02/06/19 10:49 Synthroid - PO 125 mcg DAILY [facility] Administration Metoprolol Tartrate 25 mg 02/05/19 22:00 02/06/19 10:49 Lopressor - PO 25 mg BID [facility] Administration Non-Formulary Medication 10 ml 02/05/19 22:00 Dorzolamide Hcl/Timolol Maleat [Cosopt Eye Drops] OP BID [facility] Pantoprazole Sodium 20 mg 02/06/19 10:00 02/06/19 10:49 Protonix - PO 20 mg DAILY [facility] Administration Polyethylene Glycol 17 gm 02/06/19 10:00 02/06/19 10:50 Miralax (For Daily Use) - PO 17 gm DAILY [facility] Administration Senna 1 tab 02/06/19 10:00 02/06/19 10:49 Senna - PO 1 tab DAILY [facility] Administration Simethicone 80 mg 02/05/19 22:00 02/06/19 05:53 Mylicon - PO 80 mg TID [facility] Administration Warfarin Sodium 6 mg 02/06/19 18:00 Coumadin - PO DAILY@1800 [facility] Impression 1. ESRD 2. Gout 3. a-fib 4. DM 5. CHF 6. hyperlipidemia 7. anemia Plan - HD tomorrow - renal diet - discussed fluid intake with pt - HD 3:45 2 k bath, 2000 heparin, aranesp 40, venofer 50, right arm avf - follow cultures
[2019-02-06] MEDS ORDERED: WARFARIN NA 3 MG TABLET PO SCH (18:00)
[2019-02-06 18:58] LABS: EPI CELLS 32.9 /HPF (0-5/HPF); HYALINE CASTS 37 /lpf (0-8); PH,URINE 7.5 (5.0-8.0); URINE APPEARANCE TURBID; URINE BACTERIA 6856.5 /hpf (NEGATIVE); URINE BILIRUBIN NEGATIVE (NEGATIVE); URINE COLOR YELLOW; URINE GLUCOSE (UA) NEGATIVE (NEGATIVE); URINE KETONE NEGATIVE (NEGATIVE); URINE LEUK ESTERASE 3+ (NEGATIVE); URINE NITRITE NEGATIVE (NEGATIVE); URINE PROTEIN 3+ (NEGATIVE); URINE UROBILINOGEN 0.2 mg/dL (0.2-1.0); URINE WBC 1713 /hpf (0-5)
[2019-02-06 19:12] LABS: URINE RBC 27.9 /hpf (0-4); YEAST NONE SEEN (NEGATIVE)
[2019-02-06] MEDS: ATORVASTATIN CA 10 MG TABLET (FP) PO SCH (21:55)
[2019-02-07 06:19] LABS: BASO % 0.4 % (0-2.0); EOS % 3.5 % (0-4.5); HEMATOCRIT 29.1 % (32.4-45.2); HEMOGLOBIN 9.3 GM/dL (10.7-15.3); LYMPH % 16.3 % (8-40); MCH 29.2 pg (25.7-33.7); MCHC 31.9 g/dl (32.0-36.0); MEAN CELL VOLUME 91.5 fl (80-96); MEAN PLT VOLUME 8.1 fl (7.5-11.1); MONO % 8.9 % (3.8-10.2); NEUT % 70.9 % (42.8-82.8); PLATELET COUNT 240 K/MM3 (134-434); RBC 3.18 M/mm3 (3.60-5.2); RDW 16.1 % (11.6-15.6); WHITE BLOOD COUNT 9.3 K/mm3 (4.0-10.0)
[2019-02-07] MEDS: SIMETHICONE 80 MG TAB.CHEW (FP) PO SCH (06:37)
[2019-02-07 06:42] LABS: BILIRUBIN,TOTAL 0.3 mg/dL (0.2-1); BLOOD UREA NITROGEN 47.1 mg/dL (7-18); CALCIUM 7.6 mg/dL (8.5-10.1); MAGNESIUM 2.2 mg/dL (1.8-2.4); POTASSIUM 3.8 mmol/L (3.5-5.1)
[2019-02-07 06:47] LABS: INR 2.34 (0.83-1.09); PROTHROMBIN TIME (PATIENT) 27.9 SEC (9.7-13.0)
[2019-02-07] MEDS ORDERED: PT OWN MED DRAWER 7, Y5N ONE ×2 (07:39→11:07)
[2019-02-07] MEDS ORDERED: DORZOLAMIDE 2% HCL OPHTHALMIC SOLUTION 10 ML BOTTLE OU SCH ×2 (10:00)
[2019-02-07] MEDS ORDERED: TIMOLOL 0.5% OPHTHALMIC SOL 5 ML BOTTLE OU SCH ×2 (10:00)
--- NOTE | 2019-02-07 11:07 | PN ---
Problem List - Problems (1) UTI (urinary tract infection) Code(s): N39.0 - URINARY TRACT INFECTION, SITE NOT SPECIFIED (2) Atrial fibrillation Code(s): I48.91 - UNSPECIFIED ATRIAL FIBRILLATION (3) End stage renal disease Code(s): N18.6 - END STAGE RENAL DISEASE (4) Hypothyroid Code(s): E03.9 - HYPOTHYROIDISM, UNSPECIFIED (5) Anemia Code(s): D64.9 - ANEMIA, UNSPECIFIED
[2019-02-07] MEDS: PANTOPRAZOLE 20 MG TABLET (FP) PO SCH (11:10)
[2019-02-07] MEDS: DOCUSATE SODIUM 100 MG CAPSULE (FP) PO SCH (11:10)
[2019-02-07] MEDS: HYDROXYCHLOROQUINE SO4 200 MG TABLET (FP) PO SCH (11:11)
[2019-02-07] MEDS: LEVOTHYROXINE NA 125 MCG TABLET (FP) PO SCH (11:11)
[2019-02-07] MEDS: METOPROLOL TARTRATE 25 MG TABLET (FP) PO SCH (11:11)
[2019-02-07] MEDS: SENNOSIDES 8.6MG TABLET (FP) PO SCH (11:11)
[2019-02-07] MEDS: ALLOPURINOL 100 MG TABLET (FP) PO SCH (11:11)
[2019-02-07] MEDS: amLODIPine BESYLATE 5 MG TABLET (FP) PO SCH ×2 (11:11→11:20)
[2019-02-07] MEDS: POLYETHYLENE GLYCOL 3350 119 GM BTL PO SCH (11:12)
--- NOTE | 2019-02-07 11:17 | DS ---
Physical Examination Vital Signs: Vital Signs Temperature 97.8 F 02/07/19 10:00 Pulse Rate 60 02/07/19 10:30 Respiratory Rate 18 02/07/19 10:30 Blood Pressure 142/53 L 02/07/19 10:30 O2 Sat by Pulse Oximetry (%) 98 02/06/19 21:00 Labs: CBC, BMP 02/07/19 05:00 02/07/19 05:00 Discharge Summary Reason For Visit: ACUTE ON CHRONIC RENAL FAILURE Current Active Problems Atrial fibrillation (Acute) End stage renal disease (Acute) Hypothyroid (Acute) Prophylactic measure (Acute) Renal failure (ARF), acute on chronic (Acute) UTI (urinary tract infection) (Acute) Condition: Good - Instructions - Home Medications Comprehensive Discharge Medication List: Ambulatory Orders Acetaminophen [Tylenol] 650 mg PO ASDIR 02/05/19 Allopurinol [Zyloprim -] 100 mg PO DAILY 02/05/19 Budesonide/Formeterol Fumarate [SYMBICORT 160/4.5mcg -] 1 inh PO BID 02/05/19 Docusate Sodium [Colace] 100 mg PO DAILY 02/05/19 Dorzolamide HCl/Timolol Maleat [Cosopt Eye Drops] 10 ml OP BID 02/05/19 Guaifenesin AC [Robitussin AC -] 5 ml PO TID 02/05/19 Hydroxychloroquine Sulfate 200 mg PO DAILY 02/05/19 Levothyroxine [Synthroid -] 125 mcg PO DAILY 02/05/19 Metoprolol Tartrate 25 mg PO BID 02/05/19 Ondansetron [Zuplenz] 4 mg PO TID 02/05/19 Pantoprazole Sodium [Protonix -] 20 mg PO DAILY 02/05/19 Polyethylene Glycol 3350 [Miralax (For Daily Use) -] 17 gm PO DAILY 02/05/19 Sennosides [Senna] 8.6 mg PO DAILY 02/05/19 Simethicone 80 mg PO TID 02/05/19 Simvastatin [Zocor -] 20 mg PO HS 02/05/19 Warfarin Sodium [Coumadin] 6 mg PO ASDIR 02/05/19
--- NOTE | 2019-02-07 11:23 | PN ---
Progress Note, Physician History of Present Illness: Pt seen and examined at bedside. She is tolerating HD. She denies shortness of breath. - Current Medication List Current Medications: Active Medications Acetaminophen (Tylenol -) 650 mg PO Q6H PRN PRN Reason: Fever Or Pain Last Admin: 02/06/19 21:55 Dose: 650 mg Albuterol/Ipratropium (Duoneb -) 1 amp NEB Q4H PRN PRN Reason: SHORTNESS OF BREATH Allopurinol (Zyloprim -) 100 mg PO DAILY [facility] Last Admin: 02/07/19 11:11 Dose: 100 mg Amlodipine Besylate (Norvasc -) 5 mg PO DAILY [facility] Last Admin: 02/07/19 11:11 Dose: 5 mg Atorvastatin Calcium (Lipitor -) 10 mg PO HS [facility] Last Admin: 02/06/19 21:55 Dose: 10 mg Budesonide/Formoterol Fumarate (Symbicort 160/4.5mcg -) 1 puff IH BID [facility] Last Admin: 02/06/19 21:56 Dose: 1 puff Docusate Sodium (Colace -) 100 mg PO DAILY [facility] Last Admin: 02/07/19 11:10 Dose: 100 mg Dorzolamide HCl (Trusopt 2%) 1 drop OU BID [facility] Hydroxychloroquine Sulfate (Plaquenil -) 200 mg PO DAILY [facility] Last Admin: 02/07/19 11:11 Dose: 200 mg Levofloxacin (Levaquin 250 Mg Premixed Ivpb -) 250 mg in 50 mls @ 50 mls/hr IVPB Q2D@1000 [facility]; Protocol Sodium Chloride (Normal Saline -) 250 mls @ 3,000 mls/hr IV PRN PRN PRN Reason: Hypotension during Dialysis Stop: 02/07/19 13:40 Levothyroxine Sodium (Synthroid -) 125 mcg PO DAILY [facility] Last Admin: 02/07/19 11:11 Dose: 125 mcg Metoprolol Tartrate (Lopressor -) 25 mg PO BID [facility] Last Admin: 02/07/19 11:11 Dose: 25 mg Pantoprazole Sodium (Protonix -) 20 mg PO DAILY [facility] Last Admin: 02/07/19 11:10 Dose: 20 mg Polyethylene Glycol (Miralax (For Daily Use) -) 17 gm PO DAILY [facility] Last Admin: 02/07/19 11:12 Dose: 17 gm Senna (Senna -) 1 tab PO DAILY [facility] Last Admin: 02/07/19 11:11 Dose: 1 tab Simethicone (Mylicon -) 80 mg PO TID [facility] Last Admin: 02/07/19 06:37 Dose: 80 mg Timolol Maleate (Timoptic 0.5%) 1 drop OU BID [facility] Warfarin Sodium (Coumadin -) 6 mg PO DAILY@1800 [facility] Last Admin: 02/06/19 19:22 Dose: 6 mg - Objective Vital Signs: Vital Signs Temperature 97.8 F 02/07/19 10:00 Pulse Rate 60 02/07/19 10:30 Respiratory Rate 18 02/07/19 10:30 Blood Pressure 142/53 L 02/07/19 10:30 O2 Sat by Pulse Oximetry (%) 98 02/06/19 21:00 Constitutional: Yes: Calm Eyes: Yes: Conjunctiva Clear HENT: Yes: Atraumatic Neck: Yes: Supple Cardiovascular: Yes: S1, S2 Respiratory: Yes: CTA Bilaterally, On Nasal O2 Gastrointestinal: Yes: Soft, Abdomen, Obese Genitourinary: Yes: WNL Musculoskeletal: Yes: WNL Edema: Yes Edema: LLE: 2+, RLE: 2+ Neurological: Yes: Oriented Psychiatric: Yes: Oriented Labs: CBC, BMP 02/07/19 05:00 02/07/19 05:00 INR, PTT INR 2.34 (0.83-1.09) H 02/07/19 05:00 Problem List - Problems (1) CHF (congestive heart failure) Code(s): I50.9 - HEART FAILURE, UNSPECIFIED (2) End stage renal disease Code(s): N18.6 - END STAGE RENAL DISEASE (3) Hypertension Code(s): I10 - ESSENTIAL (PRIMARY) HYPERTENSION Assessment/Plan Current Medications Generic Name Dose Route Start Last Admin Trade Name Freq PRN Reason Stop Dose Admin Acetaminophen 650 mg 02/05/19 18:45 02/06/19 21:55 Tylenol - PO 650 mg Q6H PRN Administration Fever Or Pain Albuterol/Ipratropium 1 amp 02/05/19 18:45 Duoneb - NEB Q4H PRN SHORTNESS OF BREATH Allopurinol 100 mg 02/06/19 10:00 02/07/19 11:11 Zyloprim - PO 100 mg DAILY [facility] Administration Amlodipine Besylate 5 mg 02/06/19 13:15 02/06/19 13:33 Norvasc - PO 5 mg DAILY [facility] Administration Atorvastatin Calcium 10 mg 02/05/19 22:00 02/06/19 21:55 Lipitor - PO 10 mg HS [facility] Administration Budesonide/Formoterol Fumarate 1 puff 02/05/19 22:00 02/06/19 21:56 Symbicort 160/4.5mcg - IH 1 puff BID [facility] Administration Docusate Sodium 100 mg 02/06/19 10:00 02/07/19 11:10 Colace - PO 100 mg DAILY [facility] Administration Dorzolamide HCl 1 drop 02/07/19 10:00 Trusopt 2% OU BID [facility] Hydroxychloroquine Sulfate 200 mg 02/06/19 10:00 02/07/19 11:11 Plaquenil - PO 200 mg DAILY [facility] Administration Levofloxacin 250 mg in 50 mls @ 50 mls/hr 02/08/19 10:00 Levaquin 250 Mg Premixed Ivpb - IVPB Q2D@1000 [facility] Protocol Sodium Chloride 250 mls @ 3,000 mls/hr 02/06/19 13:39 Normal Saline - IV 02/07/19 13:40 PRN PRN Hypotension during Dialysis Levothyroxine Sodium 125 mcg 02/06/19 10:00 02/07/19 11:11 Synthroid - PO 125 mcg DAILY [facility] Administration Metoprolol Tartrate 25 mg 02/05/19 22:00 02/07/19 11:11 Lopressor - PO 25 mg BID [facility] Administration Pantoprazole Sodium 20 mg 02/06/19 10:00 02/07/19 11:10 Protonix - PO 20 mg DAILY [facility] Administration Polyethylene Glycol 17 gm 02/06/19 10:00 02/07/19 11:12 Miralax (For Daily Use) - PO 17 gm DAILY [facility] Administration Senna 1 tab 02/06/19 10:00 02/07/19 11:11 Senna - PO 1 tab DAILY [facility] Administration Simethicone 80 mg 02/05/19 22:00 02/07/19 06:37 Mylicon - PO 80 mg TID [facility] Administration Timolol Maleate 1 drop 02/07/19 10:00 Timoptic 0.5% OU BID [facility] Warfarin Sodium 6 mg 02/06/19 18:00 02/06/19 19:22 Coumadin - PO 6 mg DAILY@1800 [facility] Administration Impression 1. ESRD 2. Gout 3. a-fib 4. DM 5. CHF 6. hyperlipidemia 7. anemia Plan - HD today - will UF volume - discussed fluid intake with pt - dry weight will need to be re-evaluated - renal diet - HD 3:45 2 k bath, 2000 heparin, aranesp 40, venofer 50, right arm avf
[2019-02-07] MEDS: BUDESONIDE/FORMETEROL FUMARATE 160/4.5 mcg INHALER IH SCH (11:40)
[2019-02-07 14:42] VITALS: BP 117/79; PULSE 64; TEMP 98.1
== END 2019-02-07 15:51 | DRG 291 ==
LOC: JER 10:43 → JERBED 13:15 → J4S 02-06 03:43
PROVIDERS: ADMIT Internal Medicine; ATTEND Internal Medicine
PROC: 5A1D70Z Performance of Urinary Filtration, Intermittent, Less than 6 Hours Per Day (ICD-10-PCS; principal; 2019-02-05)
DX: I13.2 Hypertensive heart and chronic kidney disease with heart failure and with stage 5 chronic kidney disease, or end stage renal disease (principal); N18.6 End stage renal disease; N17.9 Acute kidney failure, unspecified; Z68.43 Body mass index [BMI] 50.0-59.9, adult; N39.0 Urinary tract infection, site not specified; E66.01 Morbid (severe) obesity due to excess calories; E11.21 Type 2 diabetes mellitus with diabetic nephropathy; E11.22 Type 2 diabetes mellitus with diabetic chronic kidney disease; E03.9 Hypothyroidism, unspecified; I48.91 Unspecified atrial fibrillation; I50.9 Heart failure, unspecified; M06.9 Rheumatoid arthritis, unspecified; Z79.01 Long term (current) use of anticoagulants; E66.9 Obesity, unspecified; Z99.2 Dependence on renal dialysis; E78.5 Hyperlipidemia, unspecified; J44.9 Chronic obstructive pulmonary disease, unspecified; E21.3 Hyperparathyroidism, unspecified; Z88.0 Allergy status to penicillin; D64.9 Anemia, unspecified; K59.00 Constipation, unspecified; M10.9 Gout, unspecified; I25.10 Atherosclerotic heart disease of native coronary artery without angina pectoris
CPT/HCPCS: 36415; 71045-TC-FY; 80053; 81003; 82803; 82962; 83605; 83735; 83880; 84443; 84484; 85025; 85610; 86803; 87040; 87086; 87186; 87340; 93005; 93010; 97116-GP; 97162-GP; 99285-25; J0885; J1644